=== PATIENT | male | born 2000 | race African-American/Black ===

== ENCOUNTER 2025-02-09 12:27 | Emergency (ER) | payer OTHER ==
[~2025-02-09] VITALS: Ht 177.8 cm; Wt 100.0 kg
[2025-02-09 12:37] VITALS: BP 137/96; PULSE 107; RESP 16; TEMP 36.6; O2SAT 100
== END 2025-02-09 13:53 | disposition home or self-care (01) ==
LOC: ER 12:27
DX: Z02.89 Encounter for other administrative examinations (principal); F20.9 Schizophrenia, unspecified; F31.9 Bipolar disorder, unspecified; F41.9 Anxiety disorder, unspecified
CPT/HCPCS: 99283